=== PATIENT | male | born 1985 | race Caucasian/White ===

== ENCOUNTER 2016-10-24 20:16 | Emergency (ER) | payer MEDICARE, OTHER ==
--- NOTE | 2016-10-24 21:18 | ERNOTE ---
Time Seen by Provider: 10/24/16 21:03 Stated Complaint: COUGH, HEADACHE Presenting Symptoms:: cough Source: patient Exam Limitations: no limitations Immunizations: IMMUNIZATION HX Immunizations Up to Date Yes History of Influenza Vaccine No Hx Pneumococcal Vaccination No Allergies/Adverse Reactions: Allergies No Known Allergies Allergy (Verified 10/24/16 20:28) Home Medications: HOME MEDICATIONS Benzonatate [Tessalon Perle] 100 mg PO TID PRN #20 capsule 10/24/16 [Last Taken Unknown] - History of Present Ilness Narrative: pt has had cough for 3 days and today he began to have chest pain and "a warm forehead" as well. Has not taken his temperature. Has not taken any OTC preparations. Timing: getting worse Severity: moderate Modifying Factors - Worsens: Reports: coughing, deep breath Associated Symptoms: Reports: chest pain/soreness, shortness of breath Review of Systems - Review of Systems Constitutional: Present: See HPI, fatigue EYE: Present: no symptoms reported ENT: Present: nose congestion Respiratory: Present: See HPI Cardiology: Present: See HPI Gastrointestinal/Abdominal: Present: no symptoms reported Genitourinary: Present: no symptoms reported Musculoskeletal: Present: no symptoms reported Skin: Present: no symptoms reported Neurological: Present: no symptoms reported Endocrine: Present: no symptoms reported Hematologic/Lymphatic: Present: no symptoms reported Psych: Present: no symptoms reported - Patient's Past Medical History Patient History - Medical: Anxiety Patient History - Cardiac/Respiratory: Asthma Patient History - Cancer: No Hx of Cancer Patient History - Surgical Procedures: Cholecystectomy, Other Patient History - Other: None - Social History Living Situations: home Abuse History: No History of abuse Psych History: No pertinent hx Smoking Status: Never smoker Alcohol Use: none Drug Use: none - Immunizations Immunizations Up to Date: Yes Hx Pneumococcal Vaccination: No History of Influenza Vaccine: No Physical Exam - Physical Exam General Appearance: Present: wd/wn, alert, no apparent distress Eye Exam: Normal inspection: bilateral Ears, Nose, Throat: Present: normal ENT inspection, normal pharynx Neck: Present: normal inspection, nontender Respiratory: Present: no respiratory distress, normal breath sounds, lungs clear Cardiovascular/Chest: Present: regular rate, rhythm, no murmur Gastrointestinal/Abdominal: Present: nontender, nondistended Back Exam: Present: normal inspection, normal range of motion Extremity Exam: Present: normal inspection, no edema Neurological Exam: Present: alert, oriented, normal mood/affect Skin Exam: Present: normal color, warm/dry ED Progress - Results and Orders Patient's Lab Results:: I have reviewed the patient's lab results. Results and Orders: Laboratory Tests 10/24/16 10/24/16 21:26 21:26 WBC 12.0 H Hgb 17.1 Hct 51.1 Monocytes % 11.1 H Influenza Type A Ag Negative Influenza Type B Ag Negative - Vital Signs Patient's Vital Signs:: I have reviewed the patient's vital signs. Vital Signs: Vital Signs 10/24/16 20:25 Temperature 36.9 C Pulse Rate 90 Respiratory 18 Rate Blood Pressure 138/89 O2 Sat by Pulse 97 Oximetry - X-Ray X-Ray #1 X-Ray: chest Interpretation: Interp. by me X-ray Comments: no acute processes - Progress/Reassessment Chief Complaint: Cough Departure - Departure Clinical Impression: Bronchitis Disposition: Home self-care Condition: Good Instructions: Acute Bronchitis, [id number] Additional Instructions: Try mucinex 600 mg twice a day for a week or so. Only use cough medicine if you need it for sleep or coughing very much Referrals: Chica Isbell MD [Primary Care Provider] - Prescriptions: Benzonatate [Tessalon Perle] 100 mg PO TID PRN #20 capsule PRN Reason: Cough
--- OUTSIDE RECORDS SUMMARY | 2016-10-24 21:20 | XMS REPORT | Continuity of Care Document ---
:1985 Author Organization [facility] ([facility]) Address [address] [place] [address] Phone [phone] Care Team Providers Name Role Phone Duane Bennett Primary Care Provider [phone] Source Comments This disclosure is being made pursuant to the Care Everywhere program, applicable federal and state laws, and may not contain all informaitonavailable regarding this patient.[facility] ([facility]) Active Allergies and Adverse Reactions Not on File Current Medications Not on file Active Problems Not on file Social History Tobacco Use Types Packs/Day Years Used Date Never Assessed Last Filed Vital Signs Vital Sign Reading Time Taken Blood Pressure 133/83 06/14/2006 6:59 PM 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 Pulse 72 06/14/2006 6:59 PM [employer] 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 Temperature - - Respiratory Rate - - Height 1.765 m (5' 9.48") 09/19/2006 10:14 AM 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 Weight 69.196 kg (152 lb 8.8 oz) 09/19/2006 10:14 AM 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 Body Mass Index 22.21 09/19/2006 10:14 AM 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 Oxygen Saturation - - Plan of Care Health Maintenance Due Date Last Done Comments Hepatitis B Vaccine (1 of 3 - Primary Series) 1985 Tdap Vaccine 1998 Lipid Disorder Screening 2005 MMR Vaccine 2005 Td Vaccine 2005 Varicella Vaccine (1 of 2 - Adult - No Evidence of 2005 Immunity) Influenza Vaccine: Seasonal (#1) 02/14/2016 Results from Last 3 Months Not on file
[2016-10-24 21:32] LABS: Hematocrit 51.1 % (42.0-52.0); Hemoglobin 17.1 gm/dL (13.5-18.0); Mean Cell Volume 87.5 fl (78-100); Mean Corpuscular Hemoglobin 29.3 pg (27-31); Mean Corpuscular Hgb Conc 33.5 g/dl (32-36); Mean Platelet Volume 9.7 fl (6.0-9.5); Neutrophil # 7.8 K/mm3 (1.3-6.0); Neutrophil % 65.1 % (42-75.0); Platelet Count 292 K/mm3 (150-450); Red Blood Count 5.84 M/mm3 (4.7-6.0); Red Cell Distribution Width 12.9 % (11.5-14.0)
[2016-10-24] MEDS ORDERED: BENZONATATE 100 MG CAPSULE PO ONE ×2 (22:15→22:20)
[2016-10-24 22:28] VITALS: BP 124/78
== END 2016-10-24 22:26 | disposition home or self-care (01) ==
LOC: ER 20:16
DX: J20.9 Acute bronchitis, unspecified (principal)

== ENCOUNTER 2016-11-01 06:48 | Emergency (ER) | payer MEDICARE, OTHER ==
--- OUTSIDE RECORDS SUMMARY | 2016-11-01 07:59 | XMS REPORT | Continuity of Care Document ---
:1985 Author Organization [facility] ([facility]) Address [address] [place] [address] Phone [phone] Care Team Providers Name Role Phone Duane Bennett Primary Care Provider [phone] Source Comments This disclosure is being made pursuant to the Care Everywhere program, applicable federal and state laws, and may not contain all informaitonavailable regarding this patient.[facility] ([facility]) Active Allergies and Adverse Reactions Not on File Current Medications Not on file Active Problems Not on file Social History Tobacco Use Types Packs/Day Years Used Date Never Assessed Last Filed Vital Signs Vital Sign Reading Time Taken Blood Pressure 133/83 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
--- NOTE | 2016-11-01 08:19 | ERNOTE ---
Lower Extremity HPI - Narrative Date of Service: 11/01/16 - General Lower Extremities Pain: foot: right - Pain after twisting the area, ankle: right - Pain and Swelling after twisting the area Time Seen by Provider: 11/01/16 08:03 Source: patient Exam Limitations: no limitations - Immun/Allergies/Home Medications Immunizations: IMMUNIZATION HX Immunizations Up to Date Yes History of Influenza Vaccine No Hx Pneumococcal Vaccination No Allergies/Adverse Reactions: Allergies Allergy/AdvReac Type Severity Reaction Status Date / Time No Known Allergies Allergy Verified 11/01/16 07:04 Home Medications: HOME MEDICATIONS oxyCODONE HCL/ACETAMINOPHEN [Percocet 5 MG/325 MG] 1 tab PO TID PRN #10 tab [Last Taken Unknown] - History of Present Illness Narrative: Patient comes due after twisting the R ankle. Patient developed pain on the R foot also. Patient has swelling and pain. No broken skin and no bleeding. Occurred: other - Last night Location of Incident: home Method of Injury: Reports: twisted Reason for Fall: Reports: unknown Loss of Consciousness: Reports: no loss of consciousness Modifying Factors - (Improves): Reports: other - nothing Modifying Factors - (Worsens): Reports: movement Associated Symptoms: Reports: unable to bear weight. Denies: other injuries Other Injuries: Reports: none Subsequent Symptoms: Denies: sensory loss, numbness, motor loss, bowel/bladder problem Prior Treament: Denies: recently seen Review of Systems - Review of Systems Constitutional: Present: no symptoms reported EYE: Present: no symptoms reported ENT: Present: no symptoms reported Respiratory: Present: no symptoms reported Cardiology: Present: no symptoms reported Gastrointestinal/Abdominal: Present: no symptoms reported Genitourinary: Present: no symptoms reported Musculoskeletal: Present: joint pain, joint swelling - R ankle area. Absent: back pain, muscle pain, muscle stiffness Skin: Present: no symptoms reported Neurological: Present: no symptoms reported Endocrine: Present: no symptoms reported Hematologic/Lymphatic: Present: no symptoms reported Psych: Present: no symptoms reported All Other Systems: All systems neg except as marked - Patient's Past Medical History Patient History - Medical: Anxiety Patient History - Cardiac/Respiratory: Asthma Patient History - Cancer: No Hx of Cancer Patient History - Surgical Procedures: Cholecystectomy, Other Patient History - Other: None - Social History Living Situations: home Abuse History: No History of abuse Psych History: No pertinent hx Have you smoked in the past 12 months: No Alcohol Use: none Drug Use: none - Immunizations Immunizations Up to Date: Yes Hx Pneumococcal Vaccination: No History of Influenza Vaccine: No Physical Exam - Physical Exam General Appearance: Present: wd/wn, alert, no apparent distress Eye Exam: Normal inspection: bilateral Ears, Nose, Throat: Present: normal ENT inspection Neck: Present: normal inspection, nontender Respiratory: Present: no respiratory distress, lungs clear Cardiovascular/Chest: Present: normal peripheral pulses Peripheral Pulses: N=norm/S=strong/W=weak/B=bound/A=absent: Dorsalis-pedis (R): Normal Gastrointestinal/Abdominal: Present: nontender, nondistended, soft Back Exam: Present: normal inspection Extremity Exam: Present: no edema, decreased range of motion - due to pain, pelvis stable, joint swelling - Mild swelling on the R lateral ankle area. There is good pulse and good sensation. There are no open wounds. Patient with no deformity on foot or ankle area Neurological Exam: Present: alert, oriented, normal mood/affect, no motor/ sensory deficits Skin Exam: Present: normal color, warm/dry Lymphatic Exam: Present: no adenopathy ED Progress - Date and Time Seen: Date and Time: 11/01/16 08:14 Patient with no other medical complaint other than that R ankle pain - Vital Signs Patient's Vital Signs:: I have reviewed the patient's vital signs. Vital Signs: Vital Signs 11/01/16 11/01/16 06:54 08:06 Temperature 37 C Pulse Rate 71 78 Respiratory 14 Rate Blood Pressure 133/87 137/80 O2 Sat by Pulse 97 100 Oximetry - X-Ray X-Ray #1 X-Ray: ankle - R side: No Fx reported X-Ray #2 X-Ray: foot - R side: No Fx reported - Progress/Reassessment Chief Complaint: Ankle Injury/ Pain - Transfer of Care Expected Disposition: Discharge Plan - Plan Plan: Patient will be place on a Boot and is to follow up with his PCP. Departure Clinical Impression: Ankle sprain Qualifiers: Encounter type: initial encounter Involved ligament of ankle: unspecified ligament Laterality: right Qualified Code(s): S93.401A - Sprain of unspecified ligament of right ankle, initial encounter - Departure Disposition: Home self-care Condition: Stable Instructions: Ankle Sprain Additional Instructions: Please follow up with your Primary Care Provider Prescriptions: oxyCODONE HCL/ACETAMINOPHEN [Percocet 5 MG/325 MG] 1 tab PO TID PRN #10 tab PRN Reason: Pain
[2016-11-01 08:35] VITALS: BP 141/90
== END 2016-11-01 09:16 | disposition home or self-care (01) ==
LOC: ER 06:48
PROC: 2W3LX3Z Immobilization of Right Lower Extremity using Brace (ICD-10-PCS; principal; 2016-11-01)
DX: S93.401A Sprain of unspecified ligament of right ankle, initial encounter (principal); X50.1XXA Overexertion from prolonged static or awkward postures, initial encounter; Y92.009 Unspecified place in unspecified non-institutional (private) residence as the place of occurrence of the external cause

== ENCOUNTER 2017-03-01 12:33 | Emergency (ER) | payer MEDICARE, OTHER ==
[2017-03-01 13:22] VITALS: BP 127/76
--- NOTE | 2017-03-01 14:01 | ERNOTE ---
Upper Extremity HPI - Narrative Date of Service: 03/01/17 - [place] [facility] - General Extremities Pain Location: 4th finger: left - No complaint of pain. Here for dressing change Time Seen by Provider: 03/01/17 13:52 Source: patient - Immun/Allergies/Home Medications Immunizations: IMMUNIZATION HX Immunizations Up to Date Yes History of Influenza Vaccine No Hx Pneumococcal Vaccination No Allergies/Adverse Reactions: Allergies Allergy/AdvReac Type Severity Reaction Status Date / Time No Known Allergies Allergy Verified 11/01/16 07:04 Home Medications: HOME MEDICATIONS NK [No Home Medication] 03/01/17 [Last Taken Unknown] - History of Present Illness Narrative: 31 yo WM injured at work yesterday. [place] [facility] and large dressing applied to left 4th digit. Was told according to him to have dressing changed if it soaked through. He noted today some old blood at end of dressing. Apparently has appointment in [place] tomorrow. Came to ED because he was concerned about changing the dressing. - Patient's Past Medical History Patient History - Medical: Anxiety Patient History - Cardiac/Respiratory: Asthma Patient History - Cancer: No Hx of Cancer Patient History - Surgical Procedures: Cholecystectomy, Other Patient History - Other: None - Social History Living Situations: home Abuse History: No History of abuse Psych History: No pertinent hx Smoking Status: Never smoker Have you smoked in the past 12 months: No Do you dip or chew tobacco: No Alcohol Use: none Drug Use: none - Immunizations Immunizations Up to Date: Yes Hx Pneumococcal Vaccination: No History of Influenza Vaccine: No Physical Exam - Physical Exam General Appearance: Present: wd/wn, alert, no apparent distress Extremity Exam: Present: other - Left 4th digit has traumatic amputation of pulp with intact DIP. Wound is clean and dry with old blood. Proximal finger is non-tender and normal color. 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
== END 2017-03-01 14:40 | disposition home or self-care (01) ==
LOC: ER 12:33
DX: S68.625D Partial traumatic transphalangeal amputation of left ring finger, subsequent encounter (principal); X58.XXXD Exposure to other specified factors, subsequent encounter; Y92.63 Factory as the place of occurrence of the external cause; Y99.0 Civilian activity done for income or pay

== ENCOUNTER 2017-05-18 20:19 | Emergency (ER) | payer MEDICARE, OTHER ==
[2017-05-18 20:49] VITALS: BP 124/68
--- NOTE | 2017-05-18 21:25 | ERNOTE ---
Integumentary HPI - Narrative Date of Service: 05/18/17 - General Time Seen by Provider: 05/18/17 21:25 Source: patient Exam Limitations: no limitations - Immun/Allergies/Home Medications Immunizations: IMMUNIZATION HX Immunizations Up to Date Yes History of Influenza Vaccine No Hx Pneumococcal Vaccination No Allergies/Adverse Reactions: Allergies Allergy/AdvReac Type Severity Reaction Status Date / Time No Known Allergies Allergy Verified 05/18/17 20:50 Home Medications: HOME MEDICATIONS NK [No Home Medication] 03/01/17 [Last Taken Unknown] - History of Present Illness Narrative: Patient was touching his face when he incidentally felt a nodule on the left side of his face. He is here because he is worried that it may be cancer. He states it does not touch unless he pushes on it. Review of Systems - Review of Systems Constitutional: Present: no symptoms reported EYE: Present: no symptoms reported ENT: Present: See HPI Respiratory: Present: no symptoms reported Cardiology: Present: no symptoms reported Gastrointestinal/Abdominal: Present: no symptoms reported Genitourinary: Present: no symptoms reported Musculoskeletal: Present: no symptoms reported Skin: Present: no symptoms reported - Patient's Past Medical History Patient History - Medical: Anxiety Patient History - Cardiac/Respiratory: Asthma Patient History - Cancer: No Hx of Cancer Patient History - Surgical Procedures: Cholecystectomy, Other Patient History - Other: None - Social History Living Situations: home Abuse History: No History of abuse Psych History: Hx of Anxiety Smoking Status: Never smoker Alcohol Use: none Drug Use: none - Immunizations Immunizations Up to Date: Yes Hx Pneumococcal Vaccination: No History of Influenza Vaccine: No Physical Exam - Physical Exam General Appearance: Present: wd/wn, alert, no apparent distress Head Exam: Present: normal inspection, no evidence of injury, other - patient does have a short bloom on palpation in the left side of his face just approximately 2 cm above his angle of mandible I feel a 0.8 cm nodule which appears cartilaginous or cystic. Eye Exam: Normal inspection: bilateral, PERRL: bilateral, EOMI: bilateral Ears, Nose, Throat: Present: other - small nodule palpated on the left side of the face approximately 2 cm above the angle of the mandible is not read it is nontender it is not fluctuant. Feels cystic. Respiratory: Present: no respiratory distress, normal breath sounds, no accessory muscle use, chest nontender, lungs clear Cardiovascular/Chest: Present: regular rate, rhythm, no murmur, normal peripheral pulses ED Progress - Vital Signs Patient's Vital Signs:: I have reviewed the patient's vital signs. Vital Signs: Vital Signs 05/18/17 20:45 Temperature 36.7 C Pulse Rate 83 Respiratory 18 Rate Blood Pressure 124/68 O2 Sat by Pulse 99 Oximetry - Progress/Reassessment Chief Complaint: Abscess Plan - Plan Plan: This appears to be a benign incidental sebaceous cyst on the left side of the face I have educated this patient as to the benign nature of such cyst I have asked him not to squeeze it push on it or playing with it. He is to follow-up with his primary care physician in a couple of weeks without touching the lesion until then. Departure Clinical Impression: Sebaceous cyst - Departure Disposition: Home self-care Condition: Good Additional Instructions: You appeared to have a benign finding on the left side her face called a sebaceous cyst. This does not appear to be a cancer. Please do not worry about it. Please do not push on it or playing with it. Please follow-up with your primary care physician in 2 weeks for a follow-up Referrals: Chica Isbell MD [Primary Care Provider] -
== END 2017-05-18 21:25 | disposition home or self-care (01) ==
LOC: ER 20:19
DX: L72.3 Sebaceous cyst (principal)

== ENCOUNTER 2017-06-06 12:15 | Emergency (ER) | payer MEDICARE, OTHER ==
[2017-06-06 12:21] VITALS: BP 125/99
--- NOTE | 2017-06-06 12:43 | ERNOTE ---
[facility] Date of Service: 06/06/17 Presenting Symptoms: dental pain Time Seen by Provider: 06/06/17 12:30 Source: patient, RN notes reviewed Exam Limitations: no limitations - Immun/Allergies/Home Medications Immunizations: IMMUNIZATION HX Immunizations Up to Date Yes History of Influenza Vaccine No Hx Pneumococcal Vaccination No Allergies/Adverse Reactions: Allergies Allergy/AdvReac Type Severity Reaction Status Date / Time No Known Allergies Allergy Verified 06/06/17 12:21 Home Medications: HOME MEDICATIONS Ibuprofen [Motrin] 600 mg PO Q6H PRN #40 tab 06/06/17 [Last Taken Unknown] Penicillin V Potassium [Pen-Vee K] 500 mg PO Q8H #30 tab 06/06/17 [Last Taken Unknown] - History of Present Illness Narrative: 31 year old male presents with dental pain in his left lower jaw that began yesterday. He has had pain in the same region in the past but this is worse. He reports that he made a dental appointment for the day after tomorrow, but the dentist's office advised him to go to an ER to see if there was anything that could be done for him prior to that. Date (Duration): 06/05/17 ENT Location: Present: dental Prearrival Treatment: Present: no prearrival treatment Prior Treament: Reports: similar symptoms before. Denies: recently seen, currently on antibiotics Review of Systems - Review of Systems Constitutional: Absent: recent illness, fever, chills, malaise EYE: Absent: eye pain, vision changes ENT: Absent: ear pain, nose congestion, sore throat Respiratory: Absent: shortness of breath, cough Cardiology: Absent: chest pain, syncope Gastrointestinal/Abdominal: Absent: nausea, vomiting Genitourinary: Present: no symptoms reported Musculoskeletal: Absent: muscle pain, neck pain Skin: Absent: rash, lesions, lumps Neurological: Absent: headache, dizziness/light-headedness Endocrine: Present: no symptoms reported Hematologic/Lymphatic: Present: no symptoms reported Psych: Present: no symptoms reported - Patient's Past Medical History Patient History - Medical: Anxiety Patient History - Cardiac/Respiratory: Asthma Patient History - Cancer: No Hx of Cancer Patient History - Surgical Procedures: Cholecystectomy, Other Patient History - Other: None - Social History Living Situations: home Abuse History: No History of abuse Psych History: Hx of Anxiety Smoking Status: Never smoker Alcohol Use: none Drug Use: none - Immunizations Immunizations Up to Date: Yes Hx Pneumococcal Vaccination: No History of Influenza Vaccine: No Physical Exam - Physical Exam General Appearance: Present: wd/wn, alert, no apparent distress, other - Disheveled appearing Head Exam: Present: normal inspection. Absent: swelling Eye Exam: Normal inspection: bilateral Ears, Nose, Throat: Present: normal pharynx, other - several teeth with decay in the area patient is reporting pain in the left lower jaw. Absent: abnormal TM (R), abnormal TM (L), dry mucous membranes Neck: Present: normal inspection, nontender, supple. Absent: lymphadenopathy (R ), lymphadenopathy (L) Respiratory: Present: no respiratory distress, normal breath sounds, no accessory muscle use, lungs clear Cardiovascular/Chest: Present: regular rate, rhythm, no murmur Neurological Exam: Present: alert, oriented, normal mood/affect, no motor/ sensory deficits Skin Exam: Present: normal color, warm/dry ED Progress - Vital Signs Patient's Vital Signs:: I have reviewed the patient's vital signs. Vital Signs: Vital Signs 06/06/17 12:17 Temperature 36.3 C L Pulse Rate 76 Respiratory 12 Rate Blood Pressure 125/99 O2 Sat by Pulse 99 Oximetry - Progress/Reassessment Chief Complaint: Dental Problem Progress:: Unchanged Departure Clinical Impression: Pain due to dental caries - Departure Disposition: Home Follow Up Needed Condition: Stable Instructions: Dental Caries, [id number], Form - Excuse from Work, School, or Physical Activity Additional Instructions: You can also take Tylenol as directed on label See your dentist as scheduled Referrals: Chica Isbell MD [Primary Care Provider] - Prescriptions: Ibuprofen [Motrin] 600 mg PO Q6H PRN #40 tab PRN Reason: Pain Penicillin V Potassium [Pen-Vee K] 500 mg PO Q8H #30 tab
== END 2017-06-06 13:01 | disposition home or self-care (01) ==
LOC: ER 12:15
DX: K02.9 Dental caries, unspecified (principal)

== ENCOUNTER 2017-07-22 07:41 | Emergency (ER) | payer MEDICARE, MEDICAID ==
[2017-07-22] MEDS ORDERED: ALBUTEROL SULFATE 2.5 MG/0.5 ML VIAL.NEB IH ONE ×2 (07:55→07:56)
--- NOTE | 2017-07-22 08:05 | ERNOTE ---
Time Seen by Provider: 07/22/17 07:46 Stated Complaint: COUGHING Presenting Symptoms:: cough Source: patient Exam Limitations: no limitations Immunizations: IMMUNIZATION HX Immunizations Up to Date Yes History of Influenza Vaccine No Hx Pneumococcal Vaccination No Allergies/Adverse Reactions: Allergies No Known Allergies Allergy (Verified 07/22/17 07:48) Home Medications: HOME MEDICATIONS Albuterol Sulfate [Proair Hfa] 2 puff IH Q4H PRN #1 inhaler 07/22/17 [Last Taken Unknown] - History of Present Ilness Narrative: Patient started two days ago with a dry cough, body aches. He was seen in the [facility], it sounds like he was tested for influenza which was negative per his history and diagnosed with a viral infection. He is concerned that he still has a dry cough. Review of Systems - Review of Systems Constitutional: Absent: recent illness, fever ENT: Present: nose congestion. Absent: sore throat Respiratory: Present: See HPI, cough. Absent: shortness of breath Cardiology: Absent: chest pain Gastrointestinal/Abdominal: Absent: nausea Genitourinary: Present: no symptoms reported Musculoskeletal: Present: See HPI Neurological: Absent: headache - Patient's Past Medical History Patient History - Medical: Anxiety Patient History - Cardiac/Respiratory: Asthma Patient History - Cancer: No Hx of Cancer Patient History - Surgical Procedures: Cholecystectomy, Other Patient History - Other: None - Social History Living Situations: home Abuse History: No History of abuse Psych History: Hx of Anxiety Smoking Status: Never smoker Have you smoked in the past 12 months: No Do you dip or chew tobacco: No Alcohol Use: none Drug Use: none - Immunizations Immunizations Up to Date: Yes Hx Pneumococcal Vaccination: No History of Influenza Vaccine: No Physical Exam - Physical Exam General Appearance: Present: wd/wn, alert, no apparent distress Head Exam: Present: normal inspection Eye Exam: Normal inspection: bilateral, PERRL: bilateral Ears, Nose, Throat: Present: normal ENT inspection, normal pharynx Neck: Present: normal inspection. Absent: lymphadenopathy (R), lymphadenopathy (L) Respiratory: Present: no respiratory distress, normal breath sounds, no accessory muscle use, lungs clear Cardiovascular/Chest: Present: regular rate, rhythm, no murmur Neurological Exam: Present: alert, oriented, normal mood/affect Skin Exam: Present: normal color, warm/dry ED Progress - Vital Signs Patient's Vital Signs:: I have reviewed the patient's vital signs. Vital Signs: Vital Signs 07/22/17 07:48 Temperature 36.3 C L Pulse Rate 98 Respiratory 20 Rate Blood Pressure 132/85 O2 Sat by Pulse 98 Oximetry - Progress/Reassessment Chief Complaint: Cough Departure Clinical Impression: Upper respiratory infection Qualifiers: URI type: unspecified viral URI Qualified Code(s): J06.9 - Acute upper respiratory infection, unspecified - Departure Disposition: Home self-care Condition: Good Instructions: Upper Respiratory Infection, Adult, [id number] Additional Instructions: get over the counter cough syrup Referrals: Chica Isbell MD [Primary Care Provider] - Prescriptions: Albuterol Sulfate [Proair Hfa] 2 puff IH Q4H PRN #1 inhaler PRN Reason: Shortness Of Breath
[2017-07-22 08:16] VITALS: BP 128/79
== END 2017-07-22 08:15 | disposition home or self-care (01) ==
LOC: ER 07:41
DX: J06.9 Acute upper respiratory infection, unspecified (principal)

== ENCOUNTER 2017-07-23 09:36 | Emergency (ER) | payer MEDICARE, MEDICAID ==
[2017-07-23] MEDS ORDERED: IBUPROFEN 600 MG TABLET PO ONE (10:09)
--- NOTE | 2017-07-23 10:17 | ERNOTE ---
Trauma/Assault HPI - Narrative Date of Service: 07/23/17 - General Stated Complaint: FALL, NECK/BACK PAIN Time Seen by Provider: 07/23/17 10:02 Source: patient Exam Limitations: no limitations - Immun/Allergies/Home Medications Immunizations: IMMUNIZATION HX Immunizations Up to Date Yes History of Influenza Vaccine Yes Hx Pneumococcal Vaccination No Allergies/Adverse Reactions: Allergies No Known Allergies Allergy (Verified 07/23/17 09:46) Home Medications: HOME MEDICATIONS Albuterol Sulfate [Proair Hfa] 2 puff IH Q4H PRN #1 inhaler 07/22/17 [Last Taken Unknown] - History of Present Illness Date (Duration): 07/22/17 Time (Timing): 16:00 Narrative: Pt. comes in with c/o B neck pain after falling yesterday afternoon and hitting his post occiput on the ground. Pt. denies any LOC, NVD, fever, numbness, tingling, headache, dizziness, alleviating factors but states that lateral rotation exacerbates the pain. Location Occurred: Reports: home Pain Location: Reports: neck Method of Injury: Reports: direct blow, fall Severity: mild Modifying Factors - (Improves): Reports: other - denies Modifying Factors - (Worsens): Reports: movement Loss of Consciousness: Reports: no loss of consciousness, remembers the event. Denies: dazed Associated Symptoms - Trauma: Reports: neck pain. Denies: headache, confusion, dizziness, lightheadedness, seizures, trouble walking, vision changes, chest pain, shortness of breath, nausea, vomiting Review of Systems - Review of Systems Constitutional: Present: no symptoms reported. Absent: fever, chills, weakness , fatigue, malaise EYE: Present: no symptoms reported ENT: Present: no symptoms reported. Absent: nose pain, nose congestion, nasal drainage, sore throat Respiratory: Present: no symptoms reported. Absent: shortness of breath, cough , wheezing Cardiology: Present: no symptoms reported. Absent: chest pain, palpitations, edema Gastrointestinal/Abdominal: Present: no symptoms reported. Absent: nausea, vomiting, diarrhea, abdominal pain Genitourinary: Present: no symptoms reported. Absent: frequency, decreased urinary output Musculoskeletal: Present: neck pain - B caudal trapezius. Absent: back pain, joint pain Neurological: Present: no symptoms reported. Absent: headache, dizziness/light- headedness, numbness, tingling Endocrine: Present: no symptoms reported All Other Systems: All systems neg except as marked - Patient's Past Medical History Patient History - Medical: Anxiety Patient History - Cardiac/Respiratory: Asthma Patient History - Cancer: No Hx of Cancer Patient History - Surgical Procedures: Cholecystectomy, Other Patient History - Other: None - Social History Living Situations: home Abuse History: No History of abuse Psych History: Hx of Anxiety Smoking Status: Never smoker Alcohol Use: none Drug Use: none - Immunizations Immunizations Up to Date: Yes Hx Pneumococcal Vaccination: No History of Influenza Vaccine: Yes Physical Exam - Physical Exam General Appearance: Present: wd/wn, alert, no apparent distress Head Exam: Present: normal inspection, no evidence of injury, no tenderness w palpation. Absent: Colby's Sign, contusions, ecchymosis, lacerations, swelling , tenderness Eye Exam: Normal inspection: bilateral, PERRL: bilateral, EOMI: bilateral Ears, Nose, Throat: Present: normal ENT inspection, normal pharynx. Absent: abnormal TM (R), abnormal TM (L), nasal congestion, sinus pain/drainage Neck: Present: normal inspection, supple, full range of motion, tender lateral - caudal r. Absent: lymphadenopathy (R), lymphadenopathy (L) Respiratory: Present: no respiratory distress, normal breath sounds, no accessory muscle use, chest nontender, lungs clear. 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 inspection Chest/Respiratory Exam: Present: nml inspection, chest non-tender, breath sounds nml Cardiovascular Exam: Present: regular rate, rhythm, no murmur, normal peripheral pulses Back Exam: Present: normal inspection, no CVA tenderness, no vertebral tenderness Exam normal except for the findings below:: Yes - C-Spine cleared by: Neg history & exam ED Progress - Vital Signs Patient's Vital Signs:: I have reviewed the patient's vital signs. Vital Signs: Vital Signs 07/23/17 09:46 Temperature 36.7 C Pulse Rate 121 H Respiratory 16 Rate Blood Pressure 120/80 O2 Sat by Pulse 99 Oximetry - X-Ray X-Ray #1 X-Ray: c-spine Interpretation: Reviewed by me X-ray Comments: No acute osseous abnormality, C6-C7 disc disease - Progress/Reassessment Chief Complaint: Fall Departure Clinical Impression: Cervical sprain Qualifiers: Encounter type: initial encounter Qualified Code(s): S13.9XXA - Sprain of joints and ligaments of unspecified parts of neck, initial encounter - Departure Disposition: Home self-care Condition: Good Instructions: Cervical Sprain, [id number] Additional Instructions: Please apply heat and keep stretching muscles from side to side. May take Ibuprofen up to 600mg every 6 hours for pain. Referrals: Chica Isbell MD [Primary Care Provider] - Critical Care Time - Critical Care Critical Time Spent:: No Total time (mins) Spent:: 0
[2017-07-23 10:45] VITALS: BP 122/66
== END 2017-07-23 10:41 | disposition home or self-care (01) ==
LOC: ER 09:36
DX: S13.9XXA Sprain of joints and ligaments of unspecified parts of neck, initial encounter (principal); R40.2410 Glasgow coma scale score 13-15, unspecified time; W18.00XA Striking against unspecified object with subsequent fall, initial encounter; Y92.009 Unspecified place in unspecified non-institutional (private) residence as the place of occurrence of the external cause; J45.909 Unspecified asthma, uncomplicated